=== PATIENT | female | born 1995 ===

== ENCOUNTER 2023-07-31 16:49 | Emergency (ER) | payer SELFPAY ==
[~2023-07-31] VITALS: Ht 162.5 cm; Wt 81.6 kg
[2023-07-31 17:40] LABS: BILIRUBIN Negative (Negative); BLOOD Negative (Negative); CLARITY Clear (Clear); COLOR Yellow (Yellow); GLUCOSE Negative (Negative); KETONE 2+ (Negative); LEUKO ESTERASE Trace (Negative); NITRITE Negative (Negative); PH 7.5 (4.5-8.0); SPECIFIC GRAVITY >= 1.030 (1.001-1.030)
[2023-07-31 17:47] LABS: URINE AMPHETAMINES Negative (1000ng/ml); URINE BARBITURATES Negative (200ng/ml); URINE BENZODIAZEPINES Negative (200ng/ml); URINE CANNABINOIDS (THC) Positive (50ng/ml); URINE COCAINE Negative (300ng/ml); URINE METHADONE Negative (300ng/ml); URINE OPIATES Negative (300ng/ml); URINE PHENCYCLIDINE Negative (25ng/ml)
[2023-07-31 18:28] LABS: BACTERIA 1+; MUCOUS 1+
== END 2023-07-31 18:54 | disposition left against medical advice (07) ==
LOC: ED 16:49
PROVIDERS: Nurse Practitioner Family
DX: F22 Delusional disorders (principal); Z79.899 Other long term (current) drug therapy; Z53.21 Procedure and treatment not carried out due to patient leaving prior to being seen by health care provider; Z76.0 Encounter for issue of repeat prescription; Z87.891 Personal history of nicotine dependence